=== PATIENT | female | born 2005 | race Two or more races ===

== ENCOUNTER 2025-06-15 18:12 | Emergency (ER) | payer MEDICAID ==
[~2025-06-15] VITALS: Ht 162.6 cm; Wt 104.3 kg
[2025-06-15 18:31] VITALS: BP 131/71
[2025-06-15] MEDS ORDERED: NEOMY/BACITRA/POLYMYXIN B OINT UD PACKET TP ONE (20:38)
[2025-06-15] MEDS ORDERED: LIDOCAINE 4% TOPICAL 50 ML BOTTLE ONE (20:38)
[2025-06-15] MEDS: NEOMY/BACITRA/POLYMYXIN B OINT UD PACKET TP ONE (20:39)
[2025-06-15] MEDS: LIDOCAINE 4% TOPICAL 50 ML BOTTLE TP ONE (20:39)
[2025-06-15] MEDS ORDERED: LIDOCAINE HCL 1% 20 ML VIAL ONE (21:02)
[2025-06-15] MEDS ORDERED: TDAP DIPH,PERTUSS,TET VAC/PF 0.5 ML DISP.SYRIN IM ONE (21:02)
[2025-06-15] MEDS: LIDOCAINE HCL 1% 20 ML VIAL TP ONE (21:29)
[2025-06-15] MEDS: TDAP DIPH,PERTUSS,TET VAC/PF 0.5 ML DISP.SYRIN IM ONE (21:31)
[2025-06-15] MEDS ORDERED: HYDROCODONE/APAP 5-325MG TABLET ONE (22:17)
[2025-06-15] MEDS ORDERED: HYDR-3972 PO (22:25)
[2025-06-15] MEDS: HYDROCODONE/APAP 5-325MG TABLET PO ONE (22:57)
[2025-06-15 23:23] VITALS: BP 128/68; TEMP 98; O2SAT 98
== END 2025-06-15 23:24 | disposition home or self-care (01) ==
LOC: ER 18:12
DX: S52.531A Colles' fracture of right radius, initial encounter for closed fracture (principal); S61.011A Laceration without foreign body of right thumb without damage to nail, initial encounter; V43.52XA Car driver injured in collision with other type car in traffic accident, initial encounter; Y93.89 Activity, other specified; Y92.410 Unspecified street and highway as the place of occurrence of the external cause; Y99.9 Unspecified external cause status
CPT/HCPCS: 12002; 29125; 73100; 73120; 90471; 90715; 99284; J3490; A4606; A4663